=== PATIENT | male | born 1950 | race Caucasian/White ===

== ENCOUNTER 2017-04-05 08:32 | Inpatient (IN) | payer BC, MEDICARE ==
--- NOTE | ~2017-04-05 | CN ---
Consultation Report [facility] [address] [place]. [address] NAME: BETTY PALAFOX : 52 STATUS : ADM IN [facility]#: [id number] AGE: 66 ADM/REG DATE : 04/05/17 MR#: [id number] REPORT SERV DATE: 04/07/17 DICTATED BY: ARIAN PLAZA DATE: 04/07/17 REPORT STATUS : Draft TRANSCRIBED BY: MODNely DATE: 04/07/17 CARDIOLOGY CONSULTATION DATE OF CONSULTATION: 04/07/2017 REASON FOR CONSULTATION: Status post CAB, the patient presented with acute coronary syndrome. HISTORY OF PRESENT ILLNESS: Mr. Palafox is a pleasant 66-year-old gentleman with no prior history of coronary disease. He does have CAD risk factors that include hypertension and hyperlipidemia. He was seen at [facility] with complaints of chest discomfort. This led to a stress test, which was positive for inferior ischemia. He underwent cardiac catheterization there that showed evidence of multivessel coronary disease and he was sent to [facility], where he underwent CAB by Dr. Cleveland yesterday. He is doing well postoperatively, having some complaints of minimal chest discomfort. PAST MEDICAL HISTORY: Notable for hypertension and hyperlipidemia. He has a long tobacco abuse history and has some questionable COPD. He has had a history of a repaired cerebral aneurysm and has right eye blindness. HOME MEDICATIONS: Include Ziac 10/6.25 mg daily, omeprazole, and Zocor. FAMILY HISTORY: Negative for premature coronary disease. SOCIAL HISTORY: Long tobacco use, quit in 2003. Negative for alcohol or illicit drug use. He is . REVIEW OF SYSTEMS: As noted above. All other systems reviewed and negative. PHYSICAL EXAMINATION: VITAL SIGNS: Blood pressure currently of 110/50, pulse of 80 and atrially paced, respirations 16. He has an underlying sinus rate in the low 50s. GENERAL: Well developed, well nourished. HEENT: No icterus. Good dentition. NECK: Supple. No masses or thyromegaly. LUNGS: Breathing comfortably. No rales or wheezes. COR: Normal S1, S2. No S3 or S4. No murmurs, clicks, rubs. No JVD. ABD: Soft, nondistended, nontender. No hepatosplenomegaly. EXT: No clubbing, cyanosis, or edema. Peripheral pulses 2+/= bilaterally. SKIN: Warm and dry. No visible lesions. MS: Chest wall without deformity. No obvious clavicular fractures. NEURO/PSYCH: Oriented x3. No anxiety or depression. Consultation Report [place] [id number] [facility] [place] [address] NAME: BETTY PALAFOX : 52 STATUS : ADM IN [facility]#: [id number] AGE: 66 ADM/REG DATE : 04/05/17 MR#: [id number] REPORT SERV DATE: 04/07/17 DICTATED BY: ARIAN PLAZA DATE: 04/07/17 REPORT STATUS : Draft TRANSCRIBED BY: MODNely DATE: 04/07/17 DIAGNOSTIC DATA: EKG preoperatively showed sinus rhythm, normal NH, QRS, and QT intervals. Leftward axis, suggestive of left anterior fascicular block. No evidence for ischemia or infarction. LABORATORY VALUES: Essentially unremarkable. Troponin was negative. IMPRESSION: A very pleasant gentleman, who presented with acute coronary syndrome and found to have multivessel disease. He is postop day one status post CAB that included RICHMOND to LAD, SVG to D1, SVG to OM1, SVG to OM3, and SVG to RCA. The patient is doing well. We will continue to treat with Cordarone and beta-keegan as tolerated if the sinus rate improves. He is on an insulin drip. Follow for any hypertension, which he has had as an outpatient. /LAUREN Arian Plaza M.D. / [id number] CC: Steve Cleveland M.D.
--- NOTE | ~2017-04-05 | DS ---
Discharge Summary [facility] [address] [place]. [address] NAME: BETTY LAUREN : 52 STATUS : DIS IN PAT#: [id number] AGE: 66 ADM/REG DATE : 04/05/17 MR#: [id number] REPORT SERV DATE: 04/20/17 DICTATED BY: KELLY CLEVELAND DATE: 04/19/17 REPORT STATUS : Draft TRANSCRIBED BY: LAUREN DATE: 04/19/17 Data Collection from hospitalization DISCHARGE DIAGNOSIS(ES): 1. Coronary artery disease. 2. Angina (unstable angina). 3. Hypertension. 4. Hypercholesterolemia. 5. Seizure disorder. 6. History of cerebral aneurysm. 7. Blindness in the right eye. 8. Gastroesophageal reflux disease. 9. Former smoker. CONSULTATIONS: Dr. Job Ford. PROCEDURES PERFORMED: 1. Urgent coronary artery bypass grafting x5 with RICHMOND to the LAD, reverse saphenous vein graft placed to the first diagonal, reverse saphenous vein graft placed to the first obtuse marginal, reverse saphenous vein graft placed to the third obtuse marginal, reverse saphenous vein graft placed to the distal right coronary artery. 2. Endoscopic vein harvest of the saphenous vein from the right leg. 3. Transesophageal echocardiography, 04/06/2017. 4. Carotid blood flow study, 04/05/2017. PATHOLOGY: Left atrial appendage excision - no significant histopathologic change (history of coronary artery disease). MEDICATIONS: Tylenol 650 mg twice a day as needed, Cordarone 200 mg twice a day, Norvasc 10 mg daily, vitamin C 1000 mg twice a day, aspirin 81 mg daily, Lipitor 40 mg at bedtime, [place] 5/325 one tablet every four hours as needed, Cozaar 50 mg daily, Lopressor 75 mg twice a day, Prilosec 40 mg every morning, and Coumadin 2.5 mg daily. He was instructed not to continue Ziac or Zocor. CONDITION AT DISCHARGE: Stable. DISPOSITION: The patient was discharged home on a low cholesterol, low sodium 1500 calorie cardiac/diabetic diet with activities as instructed. He would follow up with Alex Blount on 06/07/2017. He would follow up with Dr. Sulaiman Hernandez on 04/18/2017. He would follow up with Dr. Sulaiman Hernandez in three to four weeks following discharge. He would follow up with Dr. Dorys Rivera in three to five weeks following discharge. HOSPITAL COURSE: This is a 66-year-old man who has a history of hypertension, hyperlipidemia, and a remote history of tobacco abuse. He had been experiencing progressive shortness of breath over the past couple of years, but this had continued to worsen and he had been experiencing what he described as episodes of nearly passing out without collapse. He presented to the emergency room at [facility] on 04/02/2017 for evaluation. His initial cardiac enzymes and EKG were negative for ischemia. He underwent a stress test Discharge Summary [address] [place]. [address] NAME: BETTY LAUREN : 52 STATUS : DIS IN PAT#: [id number] AGE: 66 ADM/REG DATE : 04/05/17 MR#: [id number] REPORT SERV DATE: 04/20/17 DICTATED BY: KELLY CLEVELAND DATE: 04/19/17 REPORT STATUS : Draft TRANSCRIBED BY: LAUREN DATE: 04/19/17 that was positive for inferior ischemia. Cardiology was consulted, and the patient had undergone an arteriogram on 04/04/2017 and was found to have severe multivessel coronary artery disease including 100% stenosis to the proximal RCA with [id number] collateralization, 80% stenosis of the first diagonal, 50% proximal LAD stenosis with 90% first obtuse marginal, 50% 2nd obtuse marginal, and 95% distal left circumflex. Ejection fraction per echocardiogram was calculated around 55% with no mention of valvular abnormality. It was felt that the patient would need to undergo coronary artery bypass grafting. He was transferred here at this time and admitted for further evaluation and treatment. Upon admission, a carotid blood flow study was performed. The following day, he was taken to the operating room where he underwent the above-mentioned procedure. He tolerated this well, and there were no complications. On postop day #1, he was afebrile. His lungs were clear. Chest tube was removed. He was transitioned from insulin drip to sliding scale. He was seen by Dr. Job Ford. The patient had had a stress test that had been positive for inferior ischemia. His cardiac catheterization had shown evidence of multivessel coronary artery disease, and he had then undergone coronary artery bypass. He was doing well postoperatively. He did have some complaints of minimal chest discomfort. EKG preoperatively had shown sinus rhythm, normal NM, QRS, and QT intervals. There was leftward axis suggestive of left anterior fascicular block. There was no evidence for ischemia or infarction. Troponin was negative. The patient had presented with acute coronary syndrome and was found to have multivessel disease. He was now postop and was doing well. We would continue to treat him with Cordarone and beta-keegan as tolerated if the sinus rate improves. He was on an insulin drip and was transitioned to sliding scale insulin. On , amiodarone drip continued. Chest x-ray showed no pneumothorax. There was no effusion. There was bibasilar atelectasis. His sternum was clean, dry, and intact. O2 was being weaned. He was in atrial fibrillation with heart rate in the 70s. He was started on amiodarone. On 04/09/2017, IV amiodarone and oral amiodarone were continued. Lopressor was increased. His lungs were clear. He had no edema. Creatinine level was 1.17. His sternum was stable. Heparin was going to began after his wires were removed. Over the next couple of days, oral amiodarone continued for his recurrent atrial fibrillation. Lopressor had been increased. Amlodipine was continued. Losartan was added. Discharge planning was performed. It was felt that he may need to undergo DC cardioversion. His incisions looked okay. He had trace lower extremity edema. He had developed a productive cough with thick sputum. IV heparin and oral Coumadin were being provided. Amiodarone was continued. INR level was 1.3. He was ambulating well. If his INR level remains subtherapeutic, he would be discharged home. Coumadin loading would continuing, and he would follow up with the manager market research in [place] for an outpatient cardioversion. We would try to discontinue the amiodarone about six weeks after the coronary artery bypass. On 04/13/2017, he was now back in a normal sinus rhythm. INR level was therapeutic. He said he felt well. His lungs were clear. He was going to follow up with his manager market research in [place]. Coumadin and amiodarone were continued. Discharge instructions were given. Clopidogrel was stopped. Due to his improved and stable condition, he was discharged home with the above-stated instructions. Information collected by: Alicia Jack Discharge Summary [place] [id number] [facility] [address] NAME: BETTY LAUREN : 52 STATUS : DIS IN PAT#: [id number] AGE: 66 ADM/REG DATE : 04/05/17 MR#: [id number] REPORT SERV DATE: 04/20/17 DICTATED BY: KELLY CLEVELAND DATE: 04/19/17 REPORT STATUS : Draft TRANSCRIBED BY: LAUREN DATE: 04/19/17 I submit the above information as my discharge summary. TG/LAUREN Kelly Cleveland M.D. / [id number] CC: Sarah Beth Whaley M.D.
--- NOTE | ~2017-04-05 | OP ---
Record Of Operation [facility] [address] [place]. [address] NAME: BETTY LAUREN : 52 STATUS : ADM IN PAT#: [id number] AGE: 66 ADM/REG DATE : 04/05/17 MR#: [id number] REPORT SERV DATE: 04/07/17 DICTATED BY: KELLY CLEVELAND DATE: 04/07/17 REPORT STATUS : Draft TRANSCRIBED BY: MODL DATE: 04/07/17 DATE OF PROCEDURE: 04/06/2017 PREOPERATIVE DIAGNOSES: 1. Coronary artery disease with angina. 2. Hypertension. 3. Hypercholesterolemia. 4. History of seizure disorder. 5. Right eye blindness. 6. Cerebrovascular disease with aneurysm. POSTOPERATIVE DIAGNOSES: 1. Coronary artery disease with angina. 2. Hypertension. 3. Hypercholesterolemia. 4. History of seizure disorder. 5. Right eye blindness. 6. Cerebral vascular disease with aneurysm. PROCEDURE PERFORMED: 1. Urgent coronary artery bypass grafting x5, left internal mammary artery placed to left anterior descending, reverse saphenous vein graft placed to the first diagonal, reverse saphenous vein graft placed to the first obtuse marginal, reverse saphenous vein graft placed to the third obtuse marginal, reverse saphenous vein graft placed to the distal right coronary artery. 2. Endoscopic vein harvest, saphenous vein from right leg. 3. Transesophageal echocardiography. SURGEON: Kelly Cleveland M.D. ASSISTANTS: Eleazar Beavers and Juliane Loaiza. ANESTHESIA: General with Dr. Brown. POLICE COMMANDING OFFICER: Sulaiman Hernandez M.D. INDICATIONS: A 66-year-old gentleman with obesity, hypertension, hyperlipidemia, who has a history of cerebrovascular aneurysm and resection with residual right eye blindness. He has been having episodes of worsening shortness of breath and these are syncopal episode. He underwent a stress test and it was abnormal, demonstrating inferior ischemia. He underwent a cardiac catheterization with Dr. Hernandez on 04/04/2017 that demonstrated a significant three vessel coronary disease. His ventricular function was preserved with an ejection fraction of greater than 50%. We were asked to transfer the patient to [facility] for possible evaluation and revascularization. We discussed this operation with the patient and his family. After discussing the Record Of Operation [facility] [address] [place]. [address] NAME: BETTY LAUREN : 52 STATUS : ADM IN PAT#: [id number] AGE: 66 ADM/REG DATE : 04/05/17 MR#: [id number] REPORT SERV DATE: 04/07/17 DICTATED BY: KELLY CLEVELAND DATE: 04/07/17 REPORT STATUS : Draft TRANSCRIBED BY: MODNely DATE: 04/07/17 operation, its indications, risks, they wished to proceed. Predicted STS risk of mortality was 1%. Risk of morbidity mortality of 10%. This was shared with the family. FINDINGS AT OPERATION: 1. Cross-clamp 69 minutes. Total pump time 79 minutes. 2. The LAD was 1.75 mm moderately diseased vessel. A 4 mm RSVG was anastomosed to it with good runoff. 3. The first diagonal was 1.75 mm moderately diseased. A 4 mm RSVG was anastomosed to it with good runoff. 4. The first obtuse marginal was 1.75 mm heavily diseased. A 4 mm RSVG was anastomosed to it with good runoff. 5. The second obtuse marginal was too small to graft. 6. The third obtuse marginal was 1.5 mm mildly diseased. A 4 mm RSVG was anastomosed to it with good runoff. 7. The distal RCA was 2 mm and moderately diseased. A 4 mm RSVG was anastomosed to it runoff. 8. The vein quality was good. All grafts had good Doppler signal at the end of the case. 9. HARSHAD demonstrated good ventricular function. There was no surgically significant valvular pathology. PATHOLOGIC SPECIMENS: None. DESCRIPTION OF PROCEDURE: The patient was brought to the operating suite where general anesthesia was induced, airway secured with an endotracheal tube. Lines secured by Anesthesia. Yepez catheter was placed. The patient's chest, abdomen, groin, and legs were prepped with Hibiclens and ChloraPrep and draped with Ioban sterile sheets. HARSHAD probe was placed by Anesthesia and examination carried out as discussed above. The saphenous vein was harvested from the right leg using endoscopic technique. Briefly, the vein was cut directly down upon through a 2 cm incision placed at the medial aspect of the right knee. Then, using VasoView trocars, the vessel was dissected from the surrounding subcutaneous tissue and fat. The side branches were identified, ligated, and divided with cautery. Once adequate length of vein had been dissected, a counter incision made in the groin and in the lower leg. The vein was ligated, divided, and brought through the knee incision. The vein quality was good and the leg wounds were made hemostatic and closed in layers with absorbable suture and skin closed in subcuticular fashion. Next, a midline sternal incision was made and the sternum was opened with a saw. The left hemithorax was elevated and the endothoracic fascia was incised. Side branch of the FABIENNE were clipped and divided. Once the FABIENNE was completely dissected, the patient was anticoagulated with heparin. The chest tube was placed in the left pleural cavity. The FABIENNE was clipped and divided distally. There was good flow through the FABIENNE and its pedicle was infiltrated with papaverine. Next, the Mario retractor was placed in the pericardium over from the innominate vein and diaphragm, where it was T'd and tacked to the side of chest wall. Cannulation pursestring Record Of Operation [place] [address] [place]. [address] NAME: BETTY LAUREN : 52 STATUS : ADM IN [facility]#: [id number] AGE: 66 ADM/REG DATE : 04/05/17 MR#: [id number] REPORT SERV DATE: 04/07/17 DICTATED BY: KELLY CLEVELAND DATE: 04/07/17 REPORT STATUS : Draft TRANSCRIBED BY: LAUREN DATE: 04/07/17 sutures were placed and cannulation was carried out in routine manner. A retrograde cardioplegia cannula was placed in the coronary sinus. When all was in readiness, the patient was placed on cardiopulmonary bypass. The distal targets were marked out on the heart as described in the findings. Then, a heart support was placed. The aorta was crossclamped and an initial dose of cold blood cardioplegia solution was given in a combination of antegrade and retrograde fashion, then a retrograde manner following proximal anastomoses. Following the first dose cardioplegia, the heart was positioned for the first obtuse marginal graft. Arteriotomy was made. The vein graft was trimmed and anastomosed to it with 7-0 Prolene. The vein graft was measured to the left side of the ascending aorta where it was divided. We then positioned the heart for the third obtuse marginal graft. Another arteriotomy was made. The vein graft was trimmed and anastomosed to it with 7-0 Prolene. This vein graft was measured back to the left side of the ascending aorta where it was divided. Then, the proximal ends of these two vein grafts were anastomosed to 5 mm punch aortotomy with 6-0 Prolene. Another dose of cardioplegia was given and the heart was positioned for the distal RCA graft. Arteriotomy was made. The vein graft was trimmed and anastomosed to it with 7-0 Prolene. This vein graft was then measured back to the right side of the ascending aorta where it was divided. We then positioned the heart for the first diagonal graft. Arteriotomy was made. The vein graft was trimmed and anastomosed to it with 7-0 Prolene. This vein graft was measured back to the right side of the ascending aorta where it was divided. Next, proximal ends of the two vein grafts were anastomosed to 4.5 mm punch aortotomies with 6-0 Prolene. Another dose of cardioplegia was given and warming was begun. We then positioned the heart for the LAD graft. Arteriotomy was made in the mid LAD. The FABIENNE was brought out of the left chest through a notch in the pericardium over the pulmonary artery. The FABIENNE was opened and anastomosed to the LAD with running suture of 8-0 Prolene. The endothoracic fascia was tacked to the epicardium. The patient was placed in Trendelenburg and final dose of warm blood cardioplegia was given in a retrograde fashion. Ventricular and atrial pacing wires were placed. Following the last dose of cardioplegia and deairing of the aorta, the aortic crossclamp was removed. The distal and proximal anastomoses were inspected and made hemostatic. Doppler demonstrated good flow through the grafts. The patient resumed a slow sinus rhythm and was paced atrially at a rate of 80. Ventilation was begun. When the heart demonstrated good contractility, it was allowed to fill and eject. When deairing was completed, the patient was taken out of Trendelenburg. The ascending aortic vent removed and these pursestring sutures tied and reinforced. The patient continued do well and chest was irrigated copiously with saline. Meticulous hemostasis was obtained. Hemasorb was placed along the cut edge of the sternum. Once hemostasis was assured, the pericardium was draped over the anterior surface of the heart tacked into position. Doppler demonstrated good flow through the grafts following protamine administration. Then, chest tubes were placed and sternum reapproximated with eight sternal wires. The clavipectoral fascia and linea alba closed with #1 Stratafix. The subcutaneous Record Of Operation [place] [id number] [facility] [place]. [address] NAME: BETTY LAUREN : 52 STATUS : ADM IN [facility]#: [id number] AGE: 66 ADM/REG DATE : 04/05/17 MR#: [id number] REPORT SERV DATE: 04/07/17 DICTATED BY: KELLY CLEVELAND DATE: 04/07/17 REPORT STATUS : Draft TRANSCRIBED BY: LAUREN DATE: 04/07/17 tissue was closed with 2-0 Stratafix and the skin closed in subcuticular fashion. The patient tolerated the procedure well without any complications. Sponge and needle counts were correct. DISPOSITION: The patient was left intubated, sedated, and transported to the intensive care unit in stable condition. DAVI/LAUREN Kelly Cleveland M.D. / [id number] CC: Sarah Beth Whaley Dr., M.D.
--- NOTE | ~2017-04-05 | HP ---
History And Physical [facility] [address] [place]. [address] NAME: BETTY LAUREN : 52 STATUS : ADM IN [facility]#: [id number] AGE: 66 ADM/REG DATE : 04/05/17 MR#: [id number] REPORT SERV DATE: 04/05/17 DICTATED BY: LYN CROOKS DATE: 04/05/17 REPORT STATUS : Draft TRANSCRIBED BY: MODL DATE: 04/05/17 DATE OF ADMISSION: 04/05/2017 CHIEF COMPLAINT: Coronary artery disease. HISTORY OF PRESENT ILLNESS: This is a pleasant 66-year-old male with a history of high blood pressure, hyperlipidemia, and remote history of tobacco abuse. He has been experiencing progressive shortness of breath over the last couple years, but this has continued to worsen and he has been experiencing what he describes as episodes where of nearly passing out without collapse. He presented to the emergency room at [facility] on 04/02/2017 for evaluation. His initial cardiac enzymes and EKG were negative for any ischemia. He underwent stress test there, which was positive for inferior ischemia. Cardiology was consulted and the patient was taken for arteriogram on 04/04/2017, found to have severe multivessel coronary artery disease including 100% stenosis to his proximal RCA with left to right collateralization, 80% stenosis of his first diagonal, 50% proximal LAD stenosis with 90% first obtuse marginal, 50% second obtuse marginal, and 95% distal left circumflex. Ejection fraction per echocardiogram calculated around 55% with no mention of valvular abnormality. The patient was transferred to [facility] for evaluation of coronary artery bypass grafting. He is currently resting in bed with no complaints of chest pain or shortness of breath. His is with him at bedside. This history and physical is obtained from talking to the patient and review of his medical records. 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 PAST SURGICAL HISTORY: Right cerebral aneurysm repair in 1979. FAMILY HISTORY: Positive family history for coronary artery disease. SOCIAL HISTORY: Thirty plus years of smoking, but he quit in 2003. He is . Lives in [place]. Denies any history of alcohol abuse or use of illicit drugs. ALLERGIES: NO KNOWN DRUG ALLERGIES. HOME MEDICATIONS: Tylenol 650 mg p.o. twice a day, Ziac 10/6.25 mg 1 tablet p.o. daily, Prilosec 40 mg p.o. every morning, simvastatin 20 mg p.o. at bedtime. PHYSICAL EXAMINATION: VITAL SIGNS: From today, temperature 97.5, heart rate 61, blood pressure 148/69, respiratory rate 18, O2 saturation 96% on room air. GENERAL: Pleasant, overweight, male, in no acute distress. NEUROLOGIC: Alert and oriented x3. Left pupil was equal, round, reactive to light and accommodation. He exhibits equal strength in bilateral upper extremities and bilateral lower extremities. History And Physical [address] [address] NAME: BETTY LAUREN : [birth year] STATUS : ADM IN [facility]#: [id number] AGE: 66 ADM/REG DATE : 04/05/17 MR#: [id number] REPORT SERV DATE: 04/05/17 DICTATED BY: LYN CROOKS DATE: 04/05/17 REPORT STATUS : Draft TRANSCRIBED BY: LAUREN DATE: 04/05/17 HEENT: Head: Normocephalic and atraumatic. Sclerae clear. Nose midline with no abnormalities: Ears with no abnormalities. Good dentition overall. NECK: Supple with no thyromegaly or lymphadenopathy. CARDIAC: S1, S2 with no murmurs, rubs, or gallops. Carotids on auscultation with no obvious bruits. LUNGS: Clear to auscultation bilaterally with normal effort. ABDOMEN: Obese, soft, nontender, with active bowel sounds. EXTREMITIES: Free of cyanosis, clubbing, or edema. Pedal pulses are present and equal bilaterally. LABORATORY DATA: White blood cell count 14.4, hemoglobin 14.8, hematocrit 42.6, platelets 240. Sodium 140, potassium 3.7, chloride 108, bicarbonate 28, BUN 24, creatinine 1.3. Glucose 119. Hemoglobin A1c 5.6. Urinalysis today reviewed and is bland. EKG, sinus rhythm with no T-wave abnormalities. ASSESSMENT AND PLAN: This is a pleasant 66-year-old male with a history of shortness of breath for several years now, which has been progressive up to the point where he sought treatment at [facility] three days ago. His initial cardiac enzymes and EKG were negative, but he did have an abnormal stress prompting cardiac catheterization which revealed multivessel coronary artery disease. He is in need of coronary revascularization of at least four to five vessels. I discussed the risks and benefits of coronary artery bypass grafting with the patient as well as alternatives and his STS risk course. STS risk stratification for him and this particular surgery include an overall mortality of 0.6% and a morbidity mortality of 9%. I discussed these findings in relation to surgery and expectations for recovery, and the patient is agreeable to proceed. Currently, the patient is scheduled for surgery for tomorrow. I discussed the plan of care with Alex Blount, nurse practitioner, who also discussed with Dr. Cleveland. Alex Blount will discuss plan for surgery and further detail later this afternoon. As for now, we will request a carotid ultrasound to evaluate for carotid stenosis. CHU/LAUREN Lyn Crooks NP / [id number] CC: Steve Cleveland M.D.
[2017-04-05 09:35] LABS: BASOPHILS 0 %; EOSINOPHILS 0 %; HEMATOCRIT 42.6 % (40.0-51.0); HEMOGLOBIN 14.8 g/dL (13.6-17.8); IMMATURE GRANULOCYTES 0.2 %; IMMATURE GRANULOCYTES ABSOLUTE 0.03 10/3/uL (0.0-0.11); LYMPHOCYTES 8.9 %; LYMPHOCYTES ABSOLUTE 1.28 10/3/uL (0.67-4.30); MEAN CORPUS HGB CONC 34.7 g/dL (32.0-36.0); MEAN CORPUSCULAR HEMOGLOB 28.9 pg (26.0-34.0); MEAN CORPUSCULAR VOLUME 83.2 fL (80-100); MEAN PLATELET VOLUME 9.4 fL (9.2-13.0); MONOCYTES 10.4 %; NEUTROPHILS 80.5 %; NEUTROPHILS ABSOLUTE 11.58 10/3/uL (2.02-8.40); PLATELET COUNT 240 10/3/uL (150-400); RBC DISTRIBUTION WIDTH 13.2 % (12.0-16.0); RED CELL COUNT 5.12 10/6/uL (4.7-6.1); WHITE BLOOD CELLS 14.4 10/3/uL (4.5-10.5)
[2017-04-05 09:36] LABS: MANUAL DIFF NO %
[2017-04-05 09:43] LABS: INTERNATIONAL NORMAL RATI 1.1 UNITS (-); PARTIAL THROMBO TIME 39.6 SEC (22.5-37.2); PROTIME (NOT ORD) 14.2 SEC (12.0-14.5)
[2017-04-05 09:51] LABS: A/G RATIO 1.1 (0.7-1.9); ALBUMIN 4.1 G/DL (3.5-5.0); ALKALINE PHOSPHATASE 79 U/L (45-117); BUN (BLOOD UREA NITROGEN) 24 MG/DL (6-23); CALCIUM, SERUM 9.2 MG/DL (8.5-10.4); CHLORIDE, SERUM 108 MMOL/L (96-112); CO2 (CARBON DIOXIDE) 28 MMOL/L (24-34); CREATININE 1.32 MG/DL (0.70-1.30); GFR AFRICAN AMERICAN 65 ML/MIN (>=60); GFR NON AFRICAN AMERICAN 56 ML/MIN (>=60); GLOBULIN 3.8 G/DL (2.5-4.1); GLUCOSE, SERUM 119 MG/DL (60-99); POTASSIUM, SERUM 3.7 MMOL/L (3.5-5.3); SGOT(AST) 20 U/L (5-40); SGPT(ALT) 35 U/L (5-65); SODIUM, SERUM 140 MMOL/L (135-148); TOTAL BILIRUBIN 0.7 MG/DL (0-1.2); TOTAL PROTEIN 7.9 G/DL (6.0-8.5)
[2017-04-05 11:33] LABS: ASCORBIC ACID (UR NOT ORDER) NEG (NEG); BILIRUBIN, URINE NEGATIVE (NEG); KETONE, URINE NEGATIVE (NEG); LEUKOCYTE ESTERASE(NOT OR NEG (NEG); WBC (NOT ORDERED) (RFLEX) 1 (0-5)
[2017-04-05] MEDS ORDERED: ZOCOR20 PO (11:34)
[2017-04-05] MEDS ORDERED: ZIAC10 PO (11:34)
[2017-04-05] MEDS ORDERED: PRILOSEC40 MG PO (11:35)
[2017-04-05] MEDS ORDERED: T PO (11:35)
[2017-04-06 19:45] LABS: BASOPHILS 0.2 %; BASOPHILS ABSOLUTE 0.03 10/3/uL (0.0-0.16); EOSINOPHILS 0.2 %; EOSINOPHILS ABSOLUTE 0.03 10/3/uL (0.0-0.53); HEMOGLOBIN 12.3 g/dL (13.6-17.8); IMMATURE GRANULOCYTES 0.4 %; IMMATURE GRANULOCYTES ABSOLUTE 0.07 10/3/uL (0.0-0.11); LYMPHOCYTES 3.6 %; LYMPHOCYTES ABSOLUTE 0.58 10/3/uL (0.67-4.30); MEAN CORPUSCULAR HEMOGLOB 28.5 pg (26.0-34.0); MEAN CORPUSCULAR VOLUME 83.8 fL (80-100); MEAN PLATELET VOLUME 9.9 fL (9.2-13.0); MONOCYTES 4.4 %; NEUTROPHILS 91.2 %; NEUTROPHILS ABSOLUTE 14.62 10/3/uL (2.02-8.40); RBC DISTRIBUTION WIDTH 13.2 % (12.0-16.0); RED CELL COUNT 4.32 10/6/uL (4.7-6.1)
[2017-04-06 19:46] LABS: BUN (BLOOD UREA NITROGEN) 24 MG/DL (6-23); CALCIUM, SERUM 8.3 MG/DL (8.5-10.4); CHLORIDE, SERUM 111 MMOL/L (96-112); CO2 (CARBON DIOXIDE) 26 MMOL/L (24-34); GFR AFRICAN AMERICAN 61 ML/MIN (>=60); GFR NON AFRICAN AMERICAN 52 ML/MIN (>=60); GLUCOSE, SERUM 131 MG/DL (60-99); POTASSIUM, SERUM 3.7 MMOL/L (3.5-5.3); SODIUM, SERUM 144 MMOL/L (135-148)
[2017-04-06 19:47] LABS: HEMATOCRIT 36.2 % (40.0-51.0); MANUAL DIFF NO %; PLATELET COUNT 149 10/3/uL (150-400)
[2017-04-06 20:12] LABS: INTERNATIONAL NORMAL RATI 1.4 UNITS (-)
[2017-04-06 20:13] LABS: PARTIAL THROMBO TIME 34.3 SEC (22.5-37.2); PROTIME (NOT ORD) 17.4 SEC (12.0-14.5)
[2017-04-06 21:39] LABS: BE (BASE EXCESS) -3.7 MEQ/L (0 +/- 2.5); CARBOXYHEMOGLOBIN 0.3 % (0-3); HCO3 (ACTUAL BICARBONATE) 22.1 MEQ/L (23-27); HEMOBLOGIN CONTENT 13.2 G/DL (14-18); INSTRUMENT SERIAL # 11843; METHEMOGLOBIN 0.5 % (0-3); O2 CONTENT 18.6 VOL% (18-24); PCO2 (CO2 TENSION) 43 MMHG (35-45); PO2 (O2 TENSION) 212 MMHG (79-93); pH 7.33 (7.37-7.43)
[2017-04-06 21:40] LABS: MODE SIMV; OPERATOR ID 13744; SAMPLE Arterial; TIDAL VOLUME 750 ML
[2017-04-07 00:59] LABS: HEMOGLOBIN 13.9 g/dL (13.6-17.8)
[2017-04-07 01:02] LABS: HEMATOCRIT 40.4 % (40.0-51.0)
[2017-04-07 01:08] LABS: POTASSIUM, SERUM 4.2 MMOL/L (3.5-5.3)
[2017-04-07 02:09] LABS: BE (BASE EXCESS) -2.9 MEQ/L (0 +/- 2.5); CARBOXYHEMOGLOBIN 0.5 % (0-3); DEVICE NC; HCO3 (ACTUAL BICARBONATE) 22.1 MEQ/L (23-27); HEMOBLOGIN CONTENT 13.9 G/DL (14-18); INSTRUMENT SERIAL # 11843; METHEMOGLOBIN 0.4 % (0-3); O2 CONTENT 18.6 VOL% (18-24); OPERATOR ID 13744; PCO2 (CO2 TENSION) 39 MMHG (35-45); PO2 (O2 TENSION) 91 MMHG (79-93); SAMPLE Arterial; pH 7.37 (7.37-7.43)
[2017-04-07 04:08] LABS: BASOPHILS 0 %; EOSINOPHILS 0 %; HEMATOCRIT 38.7 % (40.0-51.0); HEMOGLOBIN 13.3 g/dL (13.6-17.8); IMMATURE GRANULOCYTES 0.2 %; IMMATURE GRANULOCYTES ABSOLUTE 0.03 10/3/uL (0.0-0.11); LYMPHOCYTES 3.4 %; LYMPHOCYTES ABSOLUTE 0.44 10/3/uL (0.67-4.30); MEAN CORPUS HGB CONC 34.4 g/dL (32.0-36.0); MEAN CORPUSCULAR HEMOGLOB 28.9 pg (26.0-34.0); MEAN CORPUSCULAR VOLUME 84.1 fL (80-100); MONOCYTES 5.5 %; MONOCYTES ABSOLUTE 0.71 10/3/uL (0.21-1.20); NEUTROPHILS 90.9 %; NEUTROPHILS ABSOLUTE 11.69 10/3/uL (2.02-8.40); PLATELET COUNT 156 10/3/uL (150-400); RBC DISTRIBUTION WIDTH 13.3 % (12.0-16.0); WHITE BLOOD CELLS 12.9 10/3/uL (4.5-10.5)
[2017-04-07 04:09] LABS: MANUAL DIFF NO %
[2017-04-07 04:23] LABS: BUN (BLOOD UREA NITROGEN) 26 MG/DL (6-23); CALCIUM, SERUM 8.3 MG/DL (8.5-10.4); CHLORIDE, SERUM 115 MMOL/L (96-112); CO2 (CARBON DIOXIDE) 24 MMOL/L (24-34); CREATININE 1.17 MG/DL (0.70-1.30); GFR AFRICAN AMERICAN 75 ML/MIN (>=60); GFR NON AFRICAN AMERICAN 65 ML/MIN (>=60); GLUCOSE, SERUM 102 MG/DL (60-99); POTASSIUM, SERUM 4.6 MMOL/L (3.5-5.3); SODIUM, SERUM 145 MMOL/L (135-148)
[2017-04-07 17:19] LABS: HEMATOCRIT 38.8 % (40.0-51.0); HEMOGLOBIN 13.2 g/dL (13.6-17.8)
[2017-04-07 17:28] LABS: POTASSIUM, SERUM 4.1 MMOL/L (3.5-5.3)
[2017-04-08 03:38] LABS: BASOPHILS 0 %; BASOPHILS ABSOLUTE 0.01 10/3/uL (0.0-0.16); EOSINOPHILS 0 %; HEMATOCRIT 35.6 % (40.0-51.0); HEMOGLOBIN 11.9 g/dL (13.6-17.8); IMMATURE GRANULOCYTES 0.4 %; IMMATURE GRANULOCYTES ABSOLUTE 0.09 10/3/uL (0.0-0.11); LYMPHOCYTES 3.7 %; LYMPHOCYTES ABSOLUTE 0.78 10/3/uL (0.67-4.30); MANUAL DIFF NO %; MEAN CORPUS HGB CONC 33.4 g/dL (32.0-36.0); MEAN CORPUSCULAR HEMOGLOB 28.5 pg (26.0-34.0); MEAN CORPUSCULAR VOLUME 85.2 fL (80-100); MONOCYTES 12.5 %; MONOCYTES ABSOLUTE 2.63 10/3/uL (0.21-1.20); NEUTROPHILS 83.4 %; NEUTROPHILS ABSOLUTE 17.59 10/3/uL (2.02-8.40); PLATELET COUNT 170 10/3/uL (150-400); RBC DISTRIBUTION WIDTH 13.7 % (12.0-16.0); RED CELL COUNT 4.18 10/6/uL (4.7-6.1); WHITE BLOOD CELLS 21.1 10/3/uL (4.5-10.5)
[2017-04-08 03:50] LABS: BUN (BLOOD UREA NITROGEN) 29 MG/DL (6-23); CALCIUM, SERUM 7.9 MG/DL (8.5-10.4); CHLORIDE, SERUM 111 MMOL/L (96-112); CO2 (CARBON DIOXIDE) 26 MMOL/L (24-34); CREATININE 1.01 MG/DL (0.70-1.30); GFR AFRICAN AMERICAN 90 ML/MIN (>=60); GFR NON AFRICAN AMERICAN 78 ML/MIN (>=60); GLUCOSE, SERUM 119 MG/DL (60-99); POTASSIUM, SERUM 4.2 MMOL/L (3.5-5.3); SODIUM, SERUM 141 MMOL/L (135-148)
[2017-04-09 03:49] LABS: BASOPHILS 0.1 %; BASOPHILS ABSOLUTE 0.01 10/3/uL (0.0-0.16); EOSINOPHILS 0.2 %; EOSINOPHILS ABSOLUTE 0.03 10/3/uL (0.0-0.53); HEMATOCRIT 34.8 % (40.0-51.0); HEMOGLOBIN 11.6 g/dL (13.6-17.8); IMMATURE GRANULOCYTES 0.7 %; IMMATURE GRANULOCYTES ABSOLUTE 0.11 10/3/uL (0.0-0.11); LYMPHOCYTES 7.4 %; LYMPHOCYTES ABSOLUTE 1.16 10/3/uL (0.67-4.30); MEAN CORPUS HGB CONC 33.3 g/dL (32.0-36.0); MEAN CORPUSCULAR HEMOGLOB 28.4 pg (26.0-34.0); MEAN CORPUSCULAR VOLUME 85.3 fL (80-100); MEAN PLATELET VOLUME 10.3 fL (9.2-13.0); MONOCYTES 15.7 %; MONOCYTES ABSOLUTE 2.48 10/3/uL (0.21-1.20); NEUTROPHILS 75.9 %; NEUTROPHILS ABSOLUTE 11.96 10/3/uL (2.02-8.40); PLATELET COUNT 144 10/3/uL (150-400); RBC DISTRIBUTION WIDTH 13.7 % (12.0-16.0); RED CELL COUNT 4.08 10/6/uL (4.7-6.1); WHITE BLOOD CELLS 15.8 10/3/uL (4.5-10.5)
[2017-04-09 03:53] LABS: MANUAL DIFF NO %
[2017-04-09 03:58] LABS: INTERNATIONAL NORMAL RATI 1.3 UNITS (-); PROTIME (NOT ORD) 16.1 SEC (12.0-14.5)
[2017-04-09 04:05] LABS: BUN (BLOOD UREA NITROGEN) 32 MG/DL (6-23); CHLORIDE, SERUM 105 MMOL/L (96-112); CO2 (CARBON DIOXIDE) 29 MMOL/L (24-34); CREATININE 1.17 MG/DL (0.70-1.30); GFR AFRICAN AMERICAN 75 ML/MIN (>=60); GFR NON AFRICAN AMERICAN 65 ML/MIN (>=60); GLUCOSE, SERUM 100 MG/DL (60-99); POTASSIUM, SERUM 4.2 MMOL/L (3.5-5.3); SODIUM, SERUM 139 MMOL/L (135-148)
[2017-04-09 07:41] LABS: INSTRUMENT SERIAL # 11843; PCO2 (CO2 TENSION) 33 MMHG (35-45); pH 7.46 (7.37-7.43)
[2017-04-09 07:42] LABS: ALLENS TEST Pos; BE (BASE EXCESS) -0.4 MEQ/L (0 +/- 2.5); CARBOXYHEMOGLOBIN 0.3 % (0-3); DEVICE HFNC; HCO3 (ACTUAL BICARBONATE) 22.7 MEQ/L (23-27); HEMOBLOGIN CONTENT 12.3 G/DL (14-18); METHEMOGLOBIN 0.4 % (0-3); O2 CONTENT 16.7 VOL% (18-24); OPERATOR ID 13624; PO2 (O2 TENSION) 98 MMHG (79-93); SAMPLE Arterial
[2017-04-10 03:41] LABS: BASOPHILS 0.1 %; BASOPHILS ABSOLUTE 0.01 10/3/uL (0.0-0.16); EOSINOPHILS 1.8 %; EOSINOPHILS ABSOLUTE 0.21 10/3/uL (0.0-0.53); HEMATOCRIT 33.3 % (40.0-51.0); HEMOGLOBIN 11.1 g/dL (13.6-17.8); IMMATURE GRANULOCYTES 0.6 %; IMMATURE GRANULOCYTES ABSOLUTE 0.07 10/3/uL (0.0-0.11); LYMPHOCYTES 5.3 %; LYMPHOCYTES ABSOLUTE 0.63 10/3/uL (0.67-4.30); MEAN CORPUS HGB CONC 33.3 g/dL (32.0-36.0); MEAN CORPUSCULAR HEMOGLOB 28.5 pg (26.0-34.0); MEAN CORPUSCULAR VOLUME 85.6 fL (80-100); MEAN PLATELET VOLUME 10.5 fL (9.2-13.0); MONOCYTES 16.3 %; MONOCYTES ABSOLUTE 1.95 10/3/uL (0.21-1.20); NEUTROPHILS 75.9 %; NEUTROPHILS ABSOLUTE 9.09 10/3/uL (2.02-8.40); PLATELET COUNT 155 10/3/uL (150-400); RBC DISTRIBUTION WIDTH 13.7 % (12.0-16.0); RED CELL COUNT 3.89 10/6/uL (4.7-6.1)
[2017-04-10 03:42] LABS: MANUAL DIFF NO %
[2017-04-10 03:51] LABS: BUN (BLOOD UREA NITROGEN) 33 MG/DL (6-23); CALCIUM, SERUM 8.9 MG/DL (8.5-10.4); CHLORIDE, SERUM 104 MMOL/L (96-112); CO2 (CARBON DIOXIDE) 29 MMOL/L (24-34); GFR AFRICAN AMERICAN 81 ML/MIN (>=60); GFR NON AFRICAN AMERICAN 70 ML/MIN (>=60); SODIUM, SERUM 139 MMOL/L (135-148)
[2017-04-10 03:57] LABS: GLUCOSE, SERUM 136 MG/DL (60-99)
[2017-04-10 11:28] LABS: POTASSIUM, SERUM 3.8 MMOL/L (3.5-5.3)
[2017-04-10 12:55] LABS: INTERNATIONAL NORMAL RATI 1.3 UNITS (-); PARTIAL THROMBO TIME 40.8 SEC (22.5-37.2); PROTIME (NOT ORD) 15.9 SEC (12.0-14.5)
[2017-04-11 03:18] LABS: BASOPHILS 0.1 %; BASOPHILS ABSOLUTE 0.01 10/3/uL (0.0-0.16); EOSINOPHILS 1.7 %; EOSINOPHILS ABSOLUTE 0.19 10/3/uL (0.0-0.53); HEMOGLOBIN 12.4 g/dL (13.6-17.8); IMMATURE GRANULOCYTES 0.7 %; IMMATURE GRANULOCYTES ABSOLUTE 0.08 10/3/uL (0.0-0.11); LYMPHOCYTES 8.1 %; LYMPHOCYTES ABSOLUTE 0.89 10/3/uL (0.67-4.30); MEAN CORPUS HGB CONC 33.7 g/dL (32.0-36.0); MEAN CORPUSCULAR HEMOGLOB 28.4 pg (26.0-34.0); MEAN CORPUSCULAR VOLUME 84.2 fL (80-100); MEAN PLATELET VOLUME 10.5 fL (9.2-13.0); MONOCYTES 18.7 %; MONOCYTES ABSOLUTE 2.06 10/3/uL (0.21-1.20); NEUTROPHILS 70.7 %; NEUTROPHILS ABSOLUTE 7.76 10/3/uL (2.02-8.40); RBC DISTRIBUTION WIDTH 13.6 % (12.0-16.0); RED CELL COUNT 4.37 10/6/uL (4.7-6.1)
[2017-04-11 03:19] LABS: HEMATOCRIT 36.8 % (40.0-51.0); MANUAL DIFF NO %; PLATELET COUNT 208 10/3/uL (150-400)
[2017-04-11 03:25] LABS: INTERNATIONAL NORMAL RATI 1.3 UNITS (-); PROTIME (NOT ORD) 16.4 SEC (12.0-14.5)
[2017-04-11 03:26] LABS: PARTIAL THROMBO TIME 64.3 SEC (22.5-37.2)
[2017-04-11 03:35] LABS: ALKALINE PHOSPHATASE 78 U/L (45-117); CHLORIDE, SERUM 98 MMOL/L (96-112); CO2 (CARBON DIOXIDE) 32 MMOL/L (24-34); CREATININE 1.45 MG/DL (0.70-1.30); GFR AFRICAN AMERICAN 58 ML/MIN (>=60); GFR NON AFRICAN AMERICAN 50 ML/MIN (>=60); GLUCOSE, SERUM 118 MG/DL (60-99); POTASSIUM, SERUM 3.4 MMOL/L (3.5-5.3); SGOT(AST) 36 U/L (5-40); SGPT(ALT) 32 U/L (5-65); SODIUM, SERUM 139 MMOL/L (135-148)
[2017-04-11 03:37] LABS: A/G RATIO 0.8 (0.7-1.9); ALBUMIN 2.7 G/DL (3.5-5.0); BUN (BLOOD UREA NITROGEN) 40 MG/DL (6-23); GLOBULIN 3.6 G/DL (2.5-4.1); TOTAL PROTEIN 6.3 G/DL (6.0-8.5)
[2017-04-12 06:03] LABS: BASOPHILS 0.3 %; BASOPHILS ABSOLUTE 0.03 10/3/uL (0.0-0.16); EOSINOPHILS 2.7 %; EOSINOPHILS ABSOLUTE 0.31 10/3/uL (0.0-0.53); HEMATOCRIT 35.4 % (40.0-51.0); IMMATURE GRANULOCYTES ABSOLUTE 0.12 10/3/uL (0.0-0.11); LYMPHOCYTES 10.4 %; LYMPHOCYTES ABSOLUTE 1.21 10/3/uL (0.67-4.30); MEAN CORPUS HGB CONC 33.9 g/dL (32.0-36.0); MEAN CORPUSCULAR HEMOGLOB 28.4 pg (26.0-34.0); MEAN CORPUSCULAR VOLUME 83.7 fL (80-100); MEAN PLATELET VOLUME 10.5 fL (9.2-13.0); MONOCYTES 18.5 %; MONOCYTES ABSOLUTE 2.16 10/3/uL (0.21-1.20); NEUTROPHILS 67.1 %; NEUTROPHILS ABSOLUTE 7.86 10/3/uL (2.02-8.40); PLATELET COUNT 233 10/3/uL (150-400); RBC DISTRIBUTION WIDTH 13.7 % (12.0-16.0); RED CELL COUNT 4.23 10/6/uL (4.7-6.1); WHITE BLOOD CELLS 11.7 10/3/uL (4.5-10.5)
[2017-04-12 06:04] LABS: MANUAL DIFF NO %
[2017-04-12 06:08] LABS: INTERNATIONAL NORMAL RATI 1.5 UNITS (-); PROTIME (NOT ORD) 18.2 SEC (12.0-14.5)
[2017-04-12 06:09] LABS: PARTIAL THROMBO TIME 84.5 SEC (22.5-37.2)
[2017-04-12 06:12] LABS: BUN (BLOOD UREA NITROGEN) 39 MG/DL (6-23); CALCIUM, SERUM 8.7 MG/DL (8.5-10.4); CHLORIDE, SERUM 99 MMOL/L (96-112); CO2 (CARBON DIOXIDE) 31 MMOL/L (24-34); CREATININE 1.27 MG/DL (0.70-1.30); GFR AFRICAN AMERICAN 68 ML/MIN (>=60); GFR NON AFRICAN AMERICAN 59 ML/MIN (>=60); GLUCOSE, SERUM 109 MG/DL (60-99); POTASSIUM, SERUM 3.2 MMOL/L (3.5-5.3); SODIUM, SERUM 140 MMOL/L (135-148)
[2017-04-13 04:28] LABS: BASOPHILS 0.3 %; BASOPHILS ABSOLUTE 0.03 10/3/uL (0.0-0.16); EOSINOPHILS 3.4 %; EOSINOPHILS ABSOLUTE 0.36 10/3/uL (0.0-0.53); HEMATOCRIT 35.3 % (40.0-51.0); HEMOGLOBIN 11.9 g/dL (13.6-17.8); IMMATURE GRANULOCYTES 2.4 %; IMMATURE GRANULOCYTES ABSOLUTE 0.25 10/3/uL (0.0-0.11); LYMPHOCYTES 20.1 %; LYMPHOCYTES ABSOLUTE 2.12 10/3/uL (0.67-4.30); MEAN CORPUS HGB CONC 33.7 g/dL (32.0-36.0); MEAN CORPUSCULAR HEMOGLOB 28.5 pg (26.0-34.0); MEAN CORPUSCULAR VOLUME 84.4 fL (80-100); MONOCYTES 7.9 %; MONOCYTES ABSOLUTE 0.83 10/3/uL (0.21-1.20); NEUTROPHILS 65.9 %; NEUTROPHILS ABSOLUTE 6.98 10/3/uL (2.02-8.40); PLATELET COUNT 231 10/3/uL (150-400); RBC DISTRIBUTION WIDTH 13.7 % (12.0-16.0); RED CELL COUNT 4.18 10/6/uL (4.7-6.1); WHITE BLOOD CELLS 10.6 10/3/uL (4.5-10.5)
[2017-04-13 04:29] LABS: MANUAL DIFF NO %
[2017-04-13 04:34] LABS: PROTIME (NOT ORD) 22.2 SEC (12.0-14.5)
[2017-04-13 07:56] LABS: BUN (BLOOD UREA NITROGEN) 38 MG/DL (6-23); CALCIUM, SERUM 8.9 MG/DL (8.5-10.4); CHLORIDE, SERUM 99 MMOL/L (96-112); CO2 (CARBON DIOXIDE) 30 MMOL/L (24-34); CREATININE 1.37 MG/DL (0.70-1.30); GFR AFRICAN AMERICAN 62 ML/MIN (>=60); GFR NON AFRICAN AMERICAN 54 ML/MIN (>=60); POTASSIUM, SERUM 3.6 MMOL/L (3.5-5.3); SODIUM, SERUM 139 MMOL/L (135-148)
[2017-04-13 07:57] LABS: GLUCOSE, SERUM 60 MG/DL (60-99)
[2017-04-13] MEDS ORDERED: NORV10 PO (12:47)
[2017-04-13] MEDS ORDERED: VITC500 PO (12:47)
[2017-04-13] MEDS ORDERED: HALF81 PO (12:48)
[2017-04-13] MEDS ORDERED: LIPITOR40 PO (12:48)
[2017-04-13] MEDS ORDERED: CORDARONE PO (12:48)
[2017-04-13] MEDS ORDERED: COZ50 PO (12:50)
[2017-04-13] MEDS ORDERED: LOP25 PO (12:50)
[2017-04-13] MEDS ORDERED: C25 PO (12:51)
[2017-04-13] MEDS ORDERED: NORCO1 TA1 PO (12:51)
== END 2017-04-13 14:55 | disposition home or self-care (01) | DRG 236 ==
LOC: 5NO 08:32 → SDC/OF 04-06 11:35 → CVICU 04-06 13:44 → 5NO 04-10 14:46
PROVIDERS: Nurse Practitioner Family; Thoracic Surgery (Cardiothoracic Vascular Surgery)
PROC: 021309W Bypass Coronary Artery, Four or More Arteries from Aorta with Autologous Venous Tissue, Open Approach (ICD-10-PCS; principal; 2017-04-07)
PROC: 02100Z9 Bypass Coronary Artery, One Artery from Left Internal Mammary, Open Approach (ICD-10-PCS; 2017-04-07)
PROC: 06BP4ZZ Excision of Right Saphenous Vein, Percutaneous Endoscopic Approach (ICD-10-PCS; 2017-04-07)
PROC: 5A1221Z Performance of Cardiac Output, Continuous (ICD-10-PCS; 2017-04-07)
PROC: B246ZZ4 Ultrasonography of Right and Left Heart, Transesophageal (ICD-10-PCS; 2017-04-07)
DX: I25.110 Atherosclerotic heart disease of native coronary artery with unstable angina pectoris (principal); I48.91 Unspecified atrial fibrillation; J44.9 Chronic obstructive pulmonary disease, unspecified; I10 Essential (primary) hypertension; E78.5 Hyperlipidemia, unspecified; Z87.891 Personal history of nicotine dependence; E78.00 Pure hypercholesterolemia, unspecified; H54.41 Blindness, right eye, normal vision left eye; I67.9 Cerebrovascular disease, unspecified
CPT/HCPCS: 36415; 36600; 71010; 71020; 80048; 80053; 81001; 82330; 82803; 82805; 82947; 82962; 83036; 83735; 84132; 84295; 85014; 85018; 85025; 85347; 85610; 85730; 86850; 86900; 86901; 87641; 88304; 93005; 93312; 93320; 93325; 93880; 94002; 94640; 94660; 94770; A9270-GY; C1713; C1751; J0282; J0360; J0690; J1644; J2150; J2250; J2370; J2405; J2440; J2550; J2720; J2795; J2930; J3010; J3475; J3480; P9045; P9047